=== PATIENT | female | born 1995 | race Caucasian/White ===

== ENCOUNTER 2016-10-12 11:39 | Observation (INO) | payer OTHER ==
[~2016-10-12] VITALS: Ht 157.5 cm; Wt 61.2 kg
[2016-10-12 12:22] LABS: HEMOGLOBIN 12.5 gm/dl (12.3-15.3); RED BLOOD COUNT 4.62 M/UL (4.00-5.10); WHITE BLOOD COUNT 11.5 K/UL (4.5-11.0)
[2016-10-12 12:45] LABS: BUN/CREATININE RATIO 14 (0-10)
[2017-04-24] MEDS ORDERED: COLACE 100MG C100 MG PO (09:24)
== END 2016-10-13 12:39 | disposition home or self-care (01) ==
LOC: GENOP 11:39 → OB 11:55
PROVIDERS: ADMIT Obstetrics & Gynecology
DX: O21.1 Hyperemesis gravidarum with metabolic disturbance (principal); Z3A.11 11 weeks gestation of pregnancy; Z79.899 Other long term (current) drug therapy; Z98.890 Other specified postprocedural states
CPT/HCPCS: 36415; 80053; 81001; 82009; 82150; 83690; 85025; 96361; 96365; 96366; 96367; 96374; 96375; 96376; G0378; J0780; J2550; J7050

== ENCOUNTER 2016-10-15 14:53 | Emergency (ER) | payer OTHER ==
[2016-10-15 17:04] LABS: HEMOGLOBIN 11.5 gm/dl (12.3-15.3); RED BLOOD COUNT 4.27 M/UL (4.00-5.10); WHITE BLOOD COUNT 10.3 K/UL (4.5-11.0)
[2016-10-15 17:25] LABS: BUN/CREATININE RATIO 12 (0-10)
[2017-04-24] MEDS ORDERED: COLACE 100MG C100 MG PO (09:24)
== END 2016-10-15 20:20 | disposition home or self-care (01) ==
LOC: ER1 14:53
PROVIDERS: Specialist/Technologist Athletic Trainer
DX: O21.9 Vomiting of pregnancy, unspecified (principal); Z3A.12 12 weeks gestation of pregnancy
CPT/HCPCS: 36415; 80053; 85025; 96374; 96375; 99284; J2405; J2550

== ENCOUNTER 2016-10-19 16:52 | Emergency (ER) | payer OTHER ==
[2017-04-24] MEDS ORDERED: COLACE 100MG C100 MG PO (09:24)
== END 2016-10-19 21:25 | disposition left against medical advice (07) ==
LOC: ER1 16:52
DX: O21.9 Vomiting of pregnancy, unspecified (principal); Z3A.13 13 weeks gestation of pregnancy
CPT/HCPCS: 36415; 99284

== ENCOUNTER 2016-10-20 16:06 | Observation (INO) | payer OTHER ==
[~2016-10-20] VITALS: Ht 157.5 cm; Wt 61.2 kg
[2016-10-20 17:31] LABS: RED BLOOD COUNT 4.41 M/UL (4.00-5.10)
[2016-10-20 17:49] LABS: BUN/CREATININE RATIO 10 (0-10)
[2017-04-24] MEDS ORDERED: COLACE 100MG C100 MG PO (09:24)
== END 2016-10-20 21:25 | disposition home or self-care (01) ==
LOC: ER1 16:06 → OB 18:30
PROVIDERS: Physician Assistant; ADMIT Obstetrics & Gynecology
DX: O21.0 Mild hyperemesis gravidarum (principal); Z3A.13 13 weeks gestation of pregnancy; Z79.899 Other long term (current) drug therapy; Z98.890 Other specified postprocedural states
CPT/HCPCS: 36415; 80053; 81001; 83690; 84702; 85025; 87086; 87210; 96367; 96374; 99284; G0378; J0696; J2405; J7030; J7120

== ENCOUNTER 2016-12-02 14:03 | Emergency (ER) | payer OTHER ==
[2017-04-24] MEDS ORDERED: COLACE 100MG C100 MG PO (09:24)
== END 2016-12-02 17:07 | disposition home or self-care (01) ==
LOC: ER1 14:03
DX: O99.89 Other specified diseases and conditions complicating pregnancy, childbirth and the puerperium (principal); R10.817 Generalized abdominal tenderness; R11.0 Nausea; Z3A.19 19 weeks gestation of pregnancy
CPT/HCPCS: 36415; 81001; 87086; 99284

== ENCOUNTER → 2021-08-08 | Outpatient (CLI) | payer OTHER ==
[~2021-08-08] MED LIST: COLACE 100MG C100 MG PO; DULCOLAX10 MG PR; ELAVIL 25 MG TA25 MG PO; FLONASE 0.05% N16 GM; LORTAB 5-325 M1 EACH PO; MYRBETRIQ50 MG PO; OMNICEF 300 MG300 MG PO; PHENERGAN 25 MG25 M1 PO; SUDAFED 60 MG T60 MG PO; ZOFRAN4 MG PO
== END ==
LOC: LAB 16:05
DX: J40 Bronchitis, not specified as acute or chronic (principal); R06.02 Shortness of breath
CPT/HCPCS: 71046

== ENCOUNTER 2021-12-03 19:57 | Emergency (ER) | payer OTHER ==
[2021-12-03] MEDS ORDERED: IBUPROFEN600 MG PO (21:08)
[2021-12-03] MEDS ORDERED: PERCOCET 5/325 T1 EA PO (21:08)
== END 2021-12-03 21:25 | disposition home or self-care (01) ==
LOC: ER1 19:57
DX: S46.911A Strain of unspecified muscle, fascia and tendon at shoulder and upper arm level, right arm, initial encounter (principal); Z88.5 Allergy status to narcotic agent; X50.0XXA Overexertion from strenuous movement or load, initial encounter
CPT/HCPCS: 73030; 99283

== ENCOUNTER 2022-03-13 18:05 | Emergency (ER) | payer OTHER ==
[~2022-03-13 18:05] MED LIST changes: +IBUPROFEN600 MG PO; +PERCOCET 5/325 T1 EA PO
[2022-03-13 19:48] LABS: HEMOGLOBIN 12.4 gm/dl (12.3-15.3); RED BLOOD COUNT 4.42 M/UL (4.00-5.10); WHITE BLOOD COUNT 7.8 K/UL (4.5-11.0)
[2022-03-13 20:09] LABS: BUN/CREATININE RATIO 9 (0-10)
[2022-03-14] MEDS ORDERED: TORADOL 10 MG T10 MG PO (00:54)
== END 2022-03-14 01:05 | disposition home or self-care (01) ==
LOC: ER1 18:05
PROVIDERS: Family Medicine
DX: U07.1 COVID-19 (principal); M54.50 Low back pain, unspecified; Z88.5 Allergy status to narcotic agent
CPT/HCPCS: 80053; 81001; 83690; 84703; 85025; 87086; 96372; 99284; J1885; U0002